=== PATIENT | female | born 1960 | race African-American/Black ===

== ENCOUNTER 2018-12-24 12:58 | Emergency (ER) | payer MEDICAID ==
[~2018-12-24] VITALS: Ht 167.6 cm; Wt 113.0 kg
[2018-12-24] MEDS ORDERED: ACETAMINOPHEN 500MG TABLET PO ONE (13:30)
[2018-12-24 16:12] VITALS: BP 132/78
== END 2018-12-24 15:57 | disposition home or self-care (01) ==
LOC: ER 12:58
DX: M79.672 Pain in left foot (principal); M25.572 Pain in left ankle and joints of left foot
CPT/HCPCS: 73610; 73630; 99283

== ENCOUNTER 2021-02-15 08:50 | Emergency (ER) | payer MEDICAID ==
[~2021-02-15] VITALS: Ht 162.6 cm; Wt 104.0 kg
[2021-02-15 09:07] VITALS: BP 157/76
[2021-02-15] MEDS ORDERED: ACETAMINOPHEN 325MG TABLET PO ONE (09:30)
[2021-02-15] MEDS ORDERED: TOPUD MT (10:09)
== END 2021-02-15 10:23 | disposition home or self-care (01) ==
LOC: ER 08:50
DX: M25.561 Pain in right knee (principal); I10 Essential (primary) hypertension; Z98.890 Other specified postprocedural states
CPT/HCPCS: 73560; 99283

== ENCOUNTER 2024-04-18 13:24 | Emergency (ER) | payer MEDICAID, OTHER ==
[~2024-04-18] VITALS: Ht 170.2 cm; Wt 100.0 kg
[~2024-04-18 13:24] MED LIST: TOPUD MT
[2024-04-18 14:03] VITALS: O2SAT 99
[2024-04-18] MEDS: ACETAMINOPHEN 500MG TABLET PO ONE (21:25)
[2024-04-18] MEDS ORDERED: ACET-2708 MT (21:56)
[2024-04-18 22:30] VITALS: BP 133/69; PULSE 84; RESP 20; TEMP 36.78072; O2SAT 99
== END 2024-04-18 22:30 | disposition home or self-care (01) ==
LOC: ER 13:24
DX: M79.671 Pain in right foot (principal); M79.89 Other specified soft tissue disorders; I10 Essential (primary) hypertension
CPT/HCPCS: 99283; 73630; Z7610

== ENCOUNTER 2024-10-10 04:57 | Emergency (ER) | payer MEDICAID, OTHER ==
[~2024-10-10] VITALS: Ht 162.6 cm; Wt 111.0 kg
[~2024-10-10 04:57] MED LIST changes: +ACET-2708 MT
[2024-10-10 05:03] VITALS: O2SAT 100
[2024-10-10] MEDS ORDERED: OFLO5DRO4 RIGHT EAR (05:57)
[2024-10-10 06:17] VITALS: BP 136/84; PULSE 89; RESP 19; TEMP 36.8; O2SAT 100
== END 2024-10-10 06:21 | disposition home or self-care (01) ==
LOC: ER 04:57
DX: T16.9XXA Foreign body in ear, unspecified ear, initial encounter (principal); I10 Essential (primary) hypertension; W44.9XXA Unspecified foreign body entering into or through a natural orifice, initial encounter; Y93.89 Activity, other specified; Y92.89 Other specified places as the place of occurrence of the external cause; Y99.8 Other external cause status
CPT/HCPCS: 69200; 99284